=== PATIENT | female | born 1975 | race Caucasian/White ===

== ENCOUNTER 2021-03-08 22:29 | Observation (INO) ==
[2021-03-08] MEDS ORDERED: ONDANSETRON INJ 2 MG/ML 2 ML VIAL IV STA (23:34)
[2021-03-08] MEDS ORDERED: ACETAMINOPHEN 1,000 MG/100 ML VIAL IV STA (23:34)
[2021-03-08] MEDS ORDERED: SODIUM CHLORIDE 0.9% 1000ML 1,000 ML IV SCH (23:45)
--- NOTE | 2021-03-08 23:54 | Emergency Department Note ---
History of Present Illness General Chief complaint: Abdominal Pain Stated complaint: SEVERE PAIN IN RIGHT SIDE& SHOULDER, VOMITING Time Seen by Provider: 03/08/21 23:23 Source: patient Mode of arrival: ambulatory Limitations: no limitations History of Present Illness Provider complaint: Abdominal pain Onset (ago): hour(s) 4 Location: abdomen Radiation: other (Right shoulder) Severity: moderate Pain Consistency: + constant Maximum Pain Intensity: 7 Current Pain Intensity: 7 Quality: + constant Relieved By: + none Exacerbated By: + none Associated symptoms: + nausea/vomiting; no fever/chills and no malaise Treatments prior to arrival: none This is a 45-year-old female presents emergency department complaining of upper abdominal pain. Patient states pain began while eating dinner at around 8 PM. She states pain is been constant and eventually began to radiate up under her right shoulder. States she did become nauseated and vomited 3 times, no blood noted in the emesis. She denies any fevers or chills. Pain does not seem to otherwise radiate into her back or more inferiorly in her abdomen. Denies any bloating or distention. No recent change in bowel movements or urinary habits. Patient states she does have chronic kidney disease. No recent change in medications or diet. No history of PUD. No recent black or bloody stools. Patient has received both of her Covid vaccines. No other known sick contact. Pt seen during a time of high acuity and national emergency pandemic while wearing PPE. Home Medications Medication Instructions Recorded Confirmed Type furosemide 20 mg PO DAILY PRN 03/09/21 03/09/21 History hydroxyzine HCl 25 mg PO Q8H PRN 03/09/21 03/09/21 History sertraline 150 mg PO HS 03/09/21 03/09/21 History trazodone 50 mg PO HS PRN 03/09/21 03/09/21 History Allergies Allergy/AdvReac Type Severity Reaction Status Date / Time No Known Allergies Allergy Unknown Verified 03/08/21 23:59 Past Med/Surg History Medical History (Updated 03/09/21 @ 08:51 by Twyla Weber DO) Anxiety Chronic back pain Chronic kidney disease, stage 3 Depression History of recent fall Obesity Surgical History (Updated 03/09/21 @ 07:21 by Aj Barajas MD) No significant past surgical history Family History Grandmother Coronary heart disease Social History Smoking Status: Never smoker Second Hand Exposure: No; Hx Alcohol Use: Yes Alcohol type: hard liquor Hx Substance Use: No Preferred Language: Indonesian Communication Ability: Effective Core Filer Required: No Beliefs That Will Affect Care: None Current Living Situation: Family Other Information That Helps Us Care for You: No Feels Safe at Home: Yes Safety Concerns: Feels Safe At This Time Assistive Devices: None Review of Systems See HPI for pertinent positives & negatives. and A total of 10 systems reviewed and were otherwise negative Physical Exam Vital Signs Vital Signs - 24 hr 03/08/21 22:34 03/09/21 00:02 03/09/21 00:48 Temperature 36.0 C L Temperature Source Temporal Artery Scan Pulse Rate 77 66 Pulse Rate from SpO2 Sensor 67 Respiratory Rate 18 22 Respiratory Effort / Characteristics Non-Labored Spontaneous Respiratory Depth Normal Respiratory Pattern Regular Blood Pressure 148/98 H 133/66 129/87 Blood Pressure Mean 114 88 101 Blood Pressure Position Lying Pulse Oximetry 97 98 Oxygen Delivery Method Room Air Room Air Sepsis Recent Fever Within 48 Hours No Sepsis New/Unexplained Change in Mental Status No Sepsis Action Taken by Nursing No Action Required 03/09/21 01:00 03/09/21 01:30 03/09/21 02:00 Temperature Temperature Source Pulse Rate 66 72 65 Pulse Rate from SpO2 Sensor 66 72 65 Respiratory Rate 19 16 20 Respiratory Effort / Characteristics Respiratory Depth Respiratory Pattern Blood Pressure 121/71 Blood Pressure Mean 87 Blood Pressure Position Pulse Oximetry 97 98 96 Oxygen Delivery Method Room Air Room Air Room Air Sepsis Recent Fever Within 48 Hours Sepsis New/Unexplained Change in Mental Status Sepsis Action Taken by Nursing GENERAL: alert, uncomfortable appearing, well nourished, mild distress, non- toxic EYE EXAM: normal conjunctiva, PERRL and EOM's grossly intact OROPHARYNX: no exudate, no erythema, lips, buccal mucosa, and tongue normal and mucous membranes are moist NECK: supple, no nuchal rigidity, no adenopathy, non-tender LUNGS: Clear to auscultation. Normal chest wall mechanics, no w/r/r HEART: no murmurs, S1 normal and S2 normal ABDOMEN: abdomen soft, tenderness with palpation in RUQ, normo-active bowel sounds, no masses, no rebound or guarding. BACK: Back is symmetrical on inspection and there is no deformity, no midline tenderness, no CVA tenderness. SKIN: no rashes and no bruising UPPER EXTREMITIES: upper extremities are grossly normal. FROM, nml pulses b/l. LOWER EXTREMITIES: No pitting edema. FROM, nml pulses b/l. NEURO EXAM: Normal sensorium, cranial nerves II-XII grossly intact, normal speech, no gross weakness of arms, no gross weakness of legs. Gross sensation intact. Course Course 0120: Patient updated on results. Patient states pain is improved following administration of morphine. 0128: Discussed with Haim Tong PA-C on-call for general surgery. Administered Medications Cefoxitin Sodium 2,000 mg/ (Dextrose) 60 mls @ 100 mls/hr IV Q6H CONNER Stop: 03/19/21 01:59 Last Infusion: 03/09/21 08:18 Dose: 0 mls/hr Documented by: [id number] Admin: 03/09/21 07:37 Dose: 100 mls/hr Documented by: [id number] Infusion: 03/09/21 03:33 Dose: 0 mls/hr Documented by: [id number] Admin: 03/09/21 02:47 Dose: 100 mls/hr Documented by: [id number] Lactated Ringer's (Lr) 1,000 mls @ 75 mls/hr IV .[id number] CONNER Stop: 04/08/21 02:14 Last Infusion: 03/09/21 08:14 Dose: 75 mls/hr Documented by: [id number] Infusion: 03/09/21 07:37 Dose: 0 mls/hr Documented by: [id number] Admin: 03/09/21 04:26 Dose: 75 mls/hr Documented by: [id number] Infusion: 03/09/21 04:26 Dose: 75 mls/hr Documented by: [id number] Admin: 03/09/21 02:46 Dose: 75 mls/hr Documented by: [id number] Morphine Sulfate (Morphine Sulfate 2 Mg/Ml Carp) 2 mg IV Q3H PRN PRN Reason: Pain Stop: 03/23/21 01:49 Last Admin: 03/09/21 07:44 Dose: 2 mg Documented by: [id number] Ondansetron HCl (Ondansetron Inj 2 Mg/Ml 2 Ml Vial) 4 mg IV Q6H PRN PRN Reason: Nausea And Vomiting Stop: 04/08/21 01:49 Last Admin: 03/09/21 07:44 Dose: 4 mg Documented by: [id number] Discontinued Medications Acetaminophen (Ofirmev) 1,000 mg in 100 mls @ 400 mls/hr IV NOW STA Stop: 03/08/21 23:48 Last Infusion: 03/09/21 00:44 Dose: 0 mls/hr Documented by: [id number] Admin: 03/09/21 00:04 Dose: 400 mls/hr Documented by: [id number] Sodium Chloride (Nss 1000ml) 1,000 mls @ 125 mls/hr IV .Q8H CONNER Stop: 04/07/21 23:44 Last Infusion: 03/09/21 03:40 Dose: 0 mls/hr Documented by: [id number] Infusion: 03/09/21 02:50 Dose: 0 mls/hr Documented by: [id number] Admin: 03/09/21 00:03 Dose: 125 mls/hr Documented by: [id number] Morphine Sulfate (Morphine Sulfate 4 Mg/Ml 1 Ml Carp\Vial) 4 mg IV NOW STA Stop: 03/09/21 00:55 Last Admin: 03/09/21 01:02 Dose: 4 mg Documented by: [id number] Ondansetron HCl (Ondansetron Inj 2 Mg/Ml 2 Ml Vial) 4 mg IV NOW STA Stop: 03/08/21 23:35 Last Admin: 03/09/21 00:03 Dose: 4 mg Documented by: [id number] Medical Decision Making Differential Diagnosis Differential diagnoses includes but is not limited to gastritis, peptic ulcer disease, GERD, gallbladder disease, pancreatitis, small bowel obstruction, acute coronary syndrome, pericarditis, ischemic bowel, irritable bowel disease, irritable bowel syndrome, appendicitis, diverticulitis, malignancy, hernia, urinary tract infection, torsion, [/ectopic (if female)], perforation, trauma, infectious. Medical Records Attestation: I reviewed the patient's medical records. Home Medications Current Medication List: was personally reviewed by me Laboratory Data Attestation: I reviewed the patient's lab results. Result diagrams: 03/09/21 05:48 03/09/21 05:48 Lab Results 0403/08/21 03/08/21 Range/Units 23:50 23:50 23:50 WBC 11.99 H (4.8-10.8) K/uL RBC 4.94 (4.2-5.4) M/uL Hgb 13.5 (12.0-16.0) g/dL Hct 40.4 (37-47) % MCV 81.8 (80-100) fL MCH 27.3 (25-34) pg MCHC 33.4 (32-36) g/dL RDW Std Deviation 42.0 (36.4-46.3) fL RDW Coeff of Marita 14.0 (11.5-14.5) % Plt Count 233 (130-400) K/uL MPV 9.3 (7.4-10.4) fL Immature Gran % (Auto) 0.4 % Neut % (Auto) 74.4 % Lymph % (Auto) 16.6 % Wheeler % (Auto) 7.7 % Eos % (Auto) 0.8 % Baso % (Auto) 0.1 % Neut # (Auto) 8.92 H (1.4-6.5) K/uL Lymph # (Auto) 1.99 (1.2-3.4) K/uL Wheeler # (Auto) 0.92 H (0.11-0.59) K/uL Eos # (Auto) 0.10 (0-0.5) K/uL Baso # (Auto) 0.01 (0-0.2) K/uL Immature Gran # (Auto) 0.05 H (0.00-0.02) K/uL PT 9.9 (9.0-12.0) Seconds INR 1.0 (0.9-1.1) Sodium 141 (136-145) mmol/L Potassium 4.1 (3.5-5.1) mmol/L Chloride 108 H (98-107) mmol/L Carbon Dioxide 28 (21-32) mmol/L Anion Gap 5.0 (3-11) BUN 16 (7-18) mg/dl Creatinine 1.37 H (0.6-1.2) mg/dl Est Cr Clr Drug Dosing 72.2 ml/min Est GFR ( Amer) 53.5 Est GFR (Non-Af Amer) 46.1 BUN/Creatinine Ratio 11.7 (10-20) Glucose 117 H (70-99) mg/dl Calcium 8.6 (8.5-10.1) mg/dl Magnesium 2.3 (1.8-2.4) mg/dl Total Bilirubin 0.5 (0.2-1) mg/dl AST 14 L (15-37) U/L ALT 32 (12-78) U/L Alkaline Phosphatase 100 (45-117) U/L Troponin I < 0.015 (0-0.045) ng/ml Total Protein 7.9 (6.4-8.2) gm/dl Albumin 3.7 (3.4-5.0) gm/dl Globulin 4.2 H (2.5-4.0) gm/dl Albumin/Globulin Ratio 0.9 (0.9-2) Lipase 331 (73-393) U/L HCG, Qual (Negative) Urine Color Urine Appearance (Clear) Urine pH (4.5-7.5) Ur Specific [place] (1.000-1.030) Urine Protein (Negative) Urine Glucose (UA) (Negative) Urine Ketones (Negative) Urine Blood (Negative) Urine Nitrite (Negative) Urine Bilirubin (Negative) Urine Urobilinogen (Negative) Ur Leukocyte Esterase (Negative) 03/08/21 03/09/21 Range/Units 23:50 00:45 WBC (4.8-10.8) K/uL RBC (4.2-5.4) M/uL Hgb (12.0-16.0) g/dL Hct (37-47) % MCV (80-100) fL MCH (25-34) pg MCHC (32-36) g/dL RDW Std Deviation (36.4-46.3) fL RDW Coeff of Marita (11.5-14.5) % Plt Count (130-400) K/uL MPV (7.4-10.4) fL Immature Gran % (Auto) % Neut % (Auto) % Lymph % (Auto) % Wheeler % (Auto) % Eos % (Auto) % Baso % (Auto) % Neut # (Auto) (1.4-6.5) K/uL Lymph # (Auto) (1.2-3.4) K/uL [place] # (Auto) (0.11-0.59) K/uL Eos # (Auto) (0-0.5) K/uL Baso # (Auto) (0-0.2) K/uL Immature Gran # (Auto) (0.00-0.02) K/uL PT (9.0-12.0) Seconds INR (0.9-1.1) Sodium (136-145) mmol/L Potassium (3.5-5.1) mmol/L Chloride (98-107) mmol/L Carbon Dioxide (21-32) mmol/L Anion Gap (3-11) BUN (7-18) mg/dl Creatinine (0.6-1.2) mg/dl Est Cr Clr Drug Dosing ml/min Est GFR ( Amer) Est GFR (Non-Af Amer) BUN/Creatinine Ratio (10-20) Glucose (70-99) mg/dl Calcium (8.5-10.1) mg/dl Magnesium (1.8-2.4) mg/dl Total Bilirubin (0.2-1) mg/dl AST (15-37) U/L ALT (12-78) U/L Alkaline Phosphatase (45-117) U/L Troponin I (0-0.045) ng/ml Total Protein (6.4-8.2) gm/dl Albumin (3.4-5.0) gm/dl Globulin (2.5-4.0) gm/dl Albumin/Globulin Ratio (0.9-2) Lipase (73-393) U/L HCG, Qual Negative (Negative) Urine Color Yellow Urine Appearance Clear (Clear) Urine pH 5.5 (4.5-7.5) Ur Specific [place] 1.028 (1.000-1.030) Urine Protein Negative (Negative) Urine Glucose (UA) Negative (Negative) Urine Ketones Negative (Negative) Urine Blood Negative (Negative) Urine Nitrite Negative (Negative) Urine Bilirubin Negative (Negative) Urine Urobilinogen Negative (Negative) Ur Leukocyte Esterase Negative (Negative) Imaging Data Radiologist's Impression: Chest X-Ray 03/09/21 01:49 XR chest 1V portable CLINICAL HISTORY: pre-op COMPARISON STUDY: Chest radiograph August 31, 2016. FINDINGS: Lung volumes are normal. Lungs are clear. There is no pneumothorax or pleural effusion. Cardiac size is normal. Mediastinal contours are normal. There is no evidence for pulmonary edema. IMPRESSION: No acute cardiopulmonary findings. ACT 112: Negative or not required by law. Electronically signed by: Vu Gonzalez M.D. 03/09/2021 8:28 AM Ultrasound right upper quadrant: Comparison: 08/31/2016. Exam is limited due to gas artifact in the bowel. The head and tail of the pancreas are obscured with visualized portion within normal limits. The liver measures 20 cm suggestive of hepatomegaly. There is diffuse fatty infiltration. Multiple gallstones and sludge within the gallbladder. Wall is mildly distended and measures between 2.5 and 4 mm. No pericholecystic fluid. Batres's sign is unassessable due to prior pain medication. Acute cholecystitis cannot be entirely excluded. If this represents clinical concern, follow-up with HIDA scan recommended. Normal common bile duct measuring 4 mm. Right kidney measures 9.6 cm. No hydro-, no ascites. Radiologist: Angie Webb MD ECG Data Attestation: I personally reviewed and interpreted this ECG as follows: Indication: + abdominal pain Rate (beats per minute): 67 Rhythm: + normal sinus ECG Intervals/blocks: + Normal QRS and + Normal QT ECG [place]: + Normal ECG ST segments: + Normal ST segments MDM Narrative This is a 45-year-old female presents with abrupt onset right upper quadrant pain earlier this evening. Pain does radiate into the right shoulder. No prior similar episodes. Labs sent and reassuring however a leukocytosis of almost 12 was noted. Patient's ultrasound concerning for evolving acute cholecystitis. Patient was afebrile here, no elevated LFTs or lipase. Given patient's evolution of pain with nausea and vomiting, leukocytosis, and ultrasound findings, I feel this most likely represents evolving acute cholecystitis. Case discussed with general surgery PA on-call who came and evaluated the patient at bedside. Patient made aware of all results and was in agreement with plan. At this time I do not suspect acute pancreatitis, ascending cholangitis, choledocholithiasis, PUD, mesenteric ischemia, colitis, SBO, perforation, or GI bleed. An order was placed for continuous cardiac monitoring. The monitor shows a rate of _60_ with _normal sinus rhythm. Impression & Plan Abdominal pain, Biliary colic, Cholelithiasis Discharge Plan Visit Data Chief Complaint: Abdominal Pain Stated Complaint: SEVERE PAIN IN RIGHT SIDE& SHOULDER, VOMITING ED Provider: Twyla Weber Discharge Problem: Abdominal pain, Biliary colic, Cholelithiasis Patient Disposition: Admitted As Inpatient Discharge Instructions Interventions: ED Discharge Assessment Last Done: 03/09/21 03:28 Discharge Problem: Abdominal pain Qualifiers: Abdominal location: right upper quadrant Qualified Code(s): R10.11 - Right upper quadrant pain Cholelithiasis Qualifiers: Cholelithiasis location: gallbladder Cholecystitis presence: with cholecystitis Cholecystitis acuity: acute Biliary obstruction: without biliary obstruction Qualified Code(s): K80.00 - Calculus of gallbladder with acute cholecystitis without obstruction
[2021-03-09 00:06] LABS: Basophils # (auto) 0.01 K/uL (0-0.2); Basophils % (auto) 0.1 %; Eosinophils % (auto) 0.8 %; Hematocrit (blood only) 40.4 % (37-47); Hemoglobin 13.5 g/dL (12.0-16.0); Immature Granulocytes # (auto) 0.05 K/uL (0.00-0.02); Immature Granulocytes % (auto) 0.4 %; Lymphocytes # (auto) 1.99 K/uL (1.2-3.4); Lymphocytes % (auto) 16.6 %; Mean Corpuscular Hemoglobin 27.3 pg (25-34); Mean Corpuscular Hgb Conc 33.4 g/dL (32-36); Mean Corpuscular Volume 81.8 fL (80-100); Mean Platelet Volume 9.3 fL (7.4-10.4); Monocytes # (auto) 0.92 K/uL (0.11-0.59); Monocytes % (auto) 7.7 %; Neutrophils # (auto) 8.92 K/uL (1.4-6.5); Neutrophils % (auto) 74.4 %; Platelet Count 233 K/uL (130-400); Red Blood Count 4.94 M/uL (4.2-5.4); White Blood Count 11.99 K/uL (4.8-10.8)
[2021-03-09 00:18] LABS: Prothrombin Time 9.9 Seconds (9.0-12.0)
[2021-03-09 00:22] LABS: Alanine Aminotransferase 32 U/L (12-78); Albumin Level 3.7 gm/dl (3.4-5.0); Aspartate Aminotransferase 14 U/L (15-37); BUN Creatinine Ratio 11.7 (10-20); Blood Urea Nitrogen 16 mg/dl (7-18); Calcium 8.6 mg/dl (8.5-10.1); Carbon Dioxide 28 mmol/L (21-32); Chloride 108 mmol/L (98-107); Creatinine Clr Calc Pharmacy 72.2 ml/min; Est GFR (African American) 53.5; Est GFR (Non-African American) 46.1; Glucose 117 mg/dl (70-99); Lipase 331 U/L (73-393); Magnesium 2.3 mg/dl (1.8-2.4); Potassium 4.1 mmol/L (3.5-5.1); Sodium 141 mmol/L (136-145)
[2021-03-09 00:27] LABS: Pregnancy Test, Serum Negative (Negative)
[2021-03-09 00:28] LABS: Albumin Globulin Ratio 0.9 (0.9-2); Alkaline Phosphatase 100 U/L (45-117); Bilirubin,Total 0.5 mg/dl (0.2-1); Globulin 4.2 gm/dl (2.5-4.0); Total Protein 7.9 gm/dl (6.4-8.2); Troponin I < 0.015 ng/ml (0-0.045)
[2021-03-09 00:54] LABS: Appearance Urine Clear (Clear); Bilirubin Urine Negative (Negative); Blood Urine Negative (Negative); Color Urine Yellow; Glucose Urine UA Negative (Negative); Ketones Urine Negative (Negative); Leukocyte Esterase Urine Negative (Negative); Nitrite Urine Negative (Negative); Protein Urine Negative (Negative); Specific Gravity Urine 1.028 (1.000-1.030); Urobilinogen Urine Negative (Negative); pH Urine 5.5 (4.5-7.5)
[2021-03-09] MEDS ORDERED: MoRPHine SULFATE 4 MG/ML 1 ML CARP\\VIAL IV STA (00:54)
[2021-03-09] MEDS ORDERED: ACETAMINOPHEN 1,000 MG/100 ML VIAL IV PRN (01:50)
[2021-03-09] MEDS ORDERED: ONDANSETRON INJ 2 MG/ML 2 ML VIAL IV PRN ×2 (01:50→14:28)
--- NOTE | 2021-03-09 02:03 | History & Physical Report ---
Date of Service March 09, 2021 Assessment & Plan (1) Biliary colic: Due to the patient's clinical presentation as well as imaging she may benefit from cholecystectomy. We will therefore admit her to the hospital and proceed as follows: Keep patient n.p.o. Provide IV fluid for hydration Provide analgesics Provide antiemetics Administer antibiotics in the form of cefoxitin We will obtain a chest x-ray for preoperative evaluation Follow-up on results of Covid test has been sent by the emergency room physician I have discussed the situation with the patient and have described the cholecystectomy procedure to her. I informed that we typically perform this procedure laparoscopically however conversion to an open procedure is possible. I have outlined the risks, benefits, and alternatives to her. I described the expected hospital course as well as recovery to her and she wished to proceed. Timing of any procedures is pending Dr. Erickson review of this case. History of Present Illness Chief Complaint: Abdominal pain Primary Care Provider: Max Burrows MD This is a 45-year-old female who presented to the emergency department secondary to abdominal pain. Patient notes that she was in her usual state of health feeling well and she was visiting her son at [facility] in [place], [place]. Patient says that while she was eating dinner which included mashed potatoes she developed sudden onset of right upper quadrant abdominal pain. She notes that the pain radiated to her shoulder and she had associated nausea vomiting. She notes that she has never had this issue before and she denies any other postprandial abdominal pain in the past. She notes the pain was relieved with medicine that was administered in the emergency department but denies any other palliative factors. She feels as though the pain was only provoked by eating. She denies any fevers, shakes, chills. She denies any hematemesis. She denies any melena, bright red blood per rectum, or melanotic stool. She denies any prior abdominal surgeries. In the emergency department the patient had imaging and labs performed which ind ependently reviewed. CBC revealed a white blood cell count of 11.9. Her hemoglobin, hematocrit, platelet count were all within normal range. Coagulation studies were noted to be normal. Chemistry profile revealed her sodium, potassium, and BUN were within normal range. She did have a slight elevation of her creatinine at 1.3. She did not have any elevation of her LFTs. Her lipase was noted to be normal. A test was negative. Urinalysis was not indicative of infection. She did have an EKG that showed sinus rhythm without evidence of any ischemic changes. A Covid test has been ordered and is pending. A chest x-ray is been ordered and is pending. In addition the patient had a gallbladder ultrasound which showed multiple gallstones and sludge within the gallbladder. Slight distention of the gallbladder wall was noted however no pericholecystic fluid was noted. I did question the patient about her activity and lifestyle. She notes when she is feeling well she is active but her activity is somewhat limited due to low back and leg pain. She notes that she can climb 1 flight of steps without shortness of breath or chest pain. She says she can also walk on a flat grade without chest pain or shortness of breath. She does note further activity again is limited by back pain and leg pain. She is a lifetime non-smoker. At the time of my interview she is resting comfortably bed her pain was adequately controlled. She was in no distress. Allergies Allergy/AdvReac Type Severity Reaction Status Date / Time No Known Allergies Allergy Unknown Verified 03/08/21 23:59 Home Medications Medication Instructions Recorded Confirmed Type furosemide 20 mg PO DAILY PRN 03/09/21 03/09/21 History hydroxyzine HCl 25 mg PO Q8H PRN 03/09/21 03/09/21 History sertraline 150 mg PO HS 03/09/21 03/09/21 History trazodone 50 mg PO HS PRN 03/09/21 03/09/21 History Past Med/Surg History Medical History (Updated 03/09/21 @ 08:51 by Twyla Weber DO) Anxiety Chronic back pain Chronic kidney disease, stage 3 Depression History of recent fall Obesity Surgical History (Updated 03/09/21 @ 07:21 by Aj Barajas MD) No significant past surgical history Family History Grandmother Coronary heart disease Social History Smoking Status: Never smoker Second Hand Exposure: No; Hx Alcohol Use: Yes Alcohol type: hard liquor Hx Substance Use: No Preferred Language: Macedonian Communication Ability: Effective Wire Chief Required: No Beliefs That Will Affect Care: None Current Living Situation: Family Other Information That Helps Us Care for You: No Feels Safe at Home: Yes Safety Concerns: Feels Safe At This Time Assistive Devices: None Review of Systems Constitutional: no fever, no chills and no fatigue Eyes: no diplopia Ear, Nose, Mouth, Throat: no ear pain Respiratory: no cough Cardiovascular: no chest pain Gastrointestinal: + abdominal pain, + nausea and + vomiting; no diarrhea/loose stools and no blood in stools Genitourinary: no dysuria Musculoskeletal: + back pain (Chronic) Integumentary: no rash Neurologic: no localized weakness Physical Exam Constitutional: well developed and well nourished; no acute distress Eyes: no conjunctival abnormality ENMT: Ears: no hearing impairment Neck: trachea midline Respiratory: normal respiratory effort, lungs clear to auscultation Cardiovascular: Rate/Rhythm: regular rate and regular rhythm Gastrointestinal (Abdomen): Abdomen is soft and nondistended. Bowel sounds are present. There is no rebound tenderness or guarding. Patient did have pain with deep palpation noted in the right upper quadrant. Batres sign was positive. Musculoskeletal: No calf tenderness. Posterior tibial pulses were palpable bilaterally. Skin: no rashes, warm and dry Neurologic: moves all extremities Psychiatric: A+Ox3, euthymic affect Results & Data Results & Data ([facility]) Vital Signs (Past 12 Hours) Vital Signs Temp Pulse Resp BP Pulse Ox 03/09/21 00:02 133/66 03/08/21 22:34 36.0 C L 77 18 148/98 H 97 Supervising Physician Co-Signing Physician Notes Patient seen and examined, labs and imaging reviewed, agree with above. 45-year-old obese female with cholelithiasis and likely early acute cholecystitis. She ate a potato with ray and cheese last night and shortly afterwards developed significant right upper quadrant pain that came in waves. She is never had pain like this before. No prior abdominal surgeries separate tubal ligation. On exam she is afebrile stable vitals. Her abdomen is soft, tender to palpation in the right upper quadrant, negative Batres sign. WBC 10. LFTs normal. Ultrasound showed cholelithiasis with slightly thickened gallbladder wall but no pericholecystic fluid, normal common bile duct. Cholelithiasis with likely early acute cholecystitis. Plan for laparoscopic cholecystectomy with possible cholangiogram. The risk the procedure were discussed to include but not limited to bleeding, infection, retained stone, bile leak, damage surrounding structures including common bile duct, conversion open, need for future more extensive surgery, and the risk of anesthesia. PG Care Time/CCT Total # of Minutes Spent Total Time Spent with Patient: Total time spent is greater than 50% in coordination of care (as documented) at patient's floor/unit and/or counseling patient: Coding Level of Care Code 13229 OBS Care - Level 3 Diagnoses Biliary colic K80.50
[2021-03-09] MEDS: LACTATED RINGER'S 1,000 ML IV SCH ×3 (02:46→20:30)
[2021-03-09] MEDS: cefOXitin 2,000 MG in DEXTROSE 5% 50 ML IV SCH ×4 (02:47→20:29)
[2021-03-09 03:11] LABS: Influenza A virus by PCR Negative (Neg); Influenza B virus by PCR Negative (Neg); RSV by PCR Negative (Neg); SARS CoV2 RNA(COVID-19) InHosp NEGATIVE (Negative)
[2021-03-09] MEDS ORDERED: hydrOXYzine HCl 25 MG TAB PO PRN (03:38)
[2021-03-09] MEDS ORDERED: traZODone HCL 50 MG TAB PO PRN (03:38)
--- NOTE | 2021-03-09 05:58 | Surgery Progress Note ---
Date of Service March 09, 2021 Assessment & Plan (1) Biliary colic: The patient is tentatively scheduled for cholecystectomy later today. While we are waiting for surgery we will proceed in the following manner: Maintain n.p.o. status Continue hydration measures with IV fluids Continue analgesics Continue antiemetics Continue antibiotics in the form of cefoxitin Preoperative chest x-ray does not show any evidence of pneumonia or CHF Covid test has been resulted and is noted to be negative We will obtain a chest x-ray for preoperative evaluation Repeat LFTs have been ordered for this morning and are pending SCDs were utilized for DVT prevention. We will avoid chemical means in anticipation of upcoming surgery but will transition to either subcu heparin or Lovenox postoperatively This position will depend on operative findings as well as patient's recovery following surgery. Admission and Anticipated Discharge Date Admission Date: March 09, 2021 Supervising Physician Co-Signing Physician Notes Patient seen and examined, labs and imaging reviewed, agree with above. 45-year-old obese female with cholelithiasis and likely early acute cholecystitis. She ate a potato with ray and cheese last night and shortly afterwards developed significant right upper quadrant pain that came in waves. She is never had pain like this before. No prior abdominal surgeries separate tubal ligation. On exam she is afebrile stable vitals. Her abdomen is soft, tender to palpation in the right upper quadrant, negative Batres sign. WBC 10. LFTs normal. Ultrasound showed cholelithiasis with slightly thickened gallbladder wall but no pericholecystic fluid, normal common bile duct. Cholelithiasis with likely early acute cholecystitis. Plan for laparoscopic cholecystectomy with possible cholangiogram. The risk the procedure were discussed to include but not limited to bleeding, infection, retained stone, bile leak, damage surrounding structures including common bile duct, conversion open, need for future more extensive surgery, and the risk of anesthesia. Subjective Patient is resting comfortably in bed. She does note intermittent abdominal pain in the right upper quadrant. She also notes intermittent nausea vomiting. No bowel movement since admission to hospital. She denies any fevers, shakes, chills. Physical Exam Gastrointestinal (Abdomen): Abdomen is soft and nondistended. There is continued pain with palpation in the right upper quadrant. Results & Data ([facility]) Vital Signs (Past 12 Hours) Vital Signs Temp Pulse Pulse Resp BP BP Pulse Ox 03/09/21 03:40 36.5 C 64 18 127/89 98 03/09/21 03:01 63 14 97 03/09/21 03:00 63 17 141/94 H 97 03/09/21 02:31 66 15 96 03/09/21 02:30 68 17 126/71 96 03/09/21 02:18 66 14 118/78 95 03/09/21 02:00 65 20 96 03/09/21 01:30 72 16 98 03/09/21 01:00 66 19 121/71 97 03/09/21 00:48 66 22 129/87 98 03/09/21 00:02 133/66 03/08/21 22:34 36.0 C L 77 18 148/98 H 97 PG Care Time/CCT Total # of Minutes Spent Total Time Spent with Patient: Total time spent is greater than 50% in coordination of care (as documented) at patient's floor/unit and/or counseling patient: Coding Level of Care Code None Diagnoses Biliary colic K80.50
[2021-03-09 06:11] LABS: Basophils # (auto) 0.01 K/uL (0-0.2); Basophils % (auto) 0.1 %; Eosinophils # (auto) 0.11 K/uL (0-0.5); Eosinophils % (auto) 1.1 %; Hematocrit (blood only) 38.3 % (37-47); Immature Granulocytes # (auto) 0.04 K/uL (0.00-0.02); Immature Granulocytes % (auto) 0.4 %; Lymphocytes # (auto) 2.64 K/uL (1.2-3.4); Lymphocytes % (auto) 26.4 %; Mean Corpuscular Hemoglobin 27.4 pg (25-34); Mean Corpuscular Hgb Conc 33.9 g/dL (32-36); Mean Corpuscular Volume 80.6 fL (80-100); Mean Platelet Volume 9.1 fL (7.4-10.4); Monocytes # (auto) 0.92 K/uL (0.11-0.59); Monocytes % (auto) 9.2 %; Neutrophils # (auto) 6.28 K/uL (1.4-6.5); Neutrophils % (auto) 62.8 %; Platelet Count 224 K/uL (130-400); RDW Standard Deviation 41.6 fL (36.4-46.3); Red Blood Count 4.75 M/uL (4.2-5.4)
[2021-03-09 06:25] LABS: Albumin Level 3.1 gm/dl (3.4-5.0); BUN Creatinine Ratio 12.2 (10-20); Calcium 8.1 mg/dl (8.5-10.1); Creatinine Clr Calc Pharmacy 80.3 ml/min; Est GFR (African American) 60.9; Est GFR (Non-African American) 52.6; Potassium 3.9 mmol/L (3.5-5.1)
[2021-03-09 06:28] LABS: Albumin Globulin Ratio 0.8 (0.9-2); Bilirubin,Total 0.5 mg/dl (0.2-1); Globulin 3.7 gm/dl (2.5-4.0); Total Protein 6.8 gm/dl (6.4-8.2)
--- NOTE | 2021-03-09 07:18 | Anesthesiology Consultation ---
Date of Service March 09, 2021 Assessment & Plan (1) Encounter for pre-operative examination: Chart Review Chart Review: Acceptable Risk for Surgery History Surgery Operation Date: 03/09/21 13:00 Proposed Procedures p Laparoscopic Cholecystectomy - Michael Erickson DO, FACS Height/Weight Height: 5 ft 8 in Weight: 126.6 kg Allergies Allergy/AdvReac Type Severity Reaction Status Date / Time No Known Allergies Allergy Unknown Verified 03/08/21 23:59 Medications Home Medications Medication Instructions Recorded Confirmed Last Taken furosemide 20 mg PO DAILY PRN 03/09/21 03/09/21 Unknown hydroxyzine HCl 25 mg PO Q8H PRN 03/09/21 03/09/21 Unknown sertraline 150 mg PO HS 03/09/21 03/09/21 03/07/21 trazodone 50 mg PO HS PRN 03/09/21 03/09/21 Unknown Active Medications Generic Name Dose Route Start Last Admin Trade Name Freq PRN Reason Stop Dose Admin Cefoxitin Sodium 2,000 mg/ 60 mls @ 100 mls/hr 03/09/21 02:00 03/09/21 03:33 Dextrose IV 03/19/21 01:59 Infused Q6H CONNER Infusion Lactated Ringer's 1,000 mls @ 75 mls/hr 03/09/21 02:15 03/09/21 04:26 Lr IV 04/08/21 02:14 75 mls/hr .[id number] CONNER Administration NPO Date Last Intake of Fluids: 03/09/21 Time Last Intake of Fluids: 03:40 Date Last Intake of Solids: 03/09/21 Time Last Intake of Solids: 03:40 Past Medical History Medical History (Updated 03/09/21 @ 07:22 by Aj Barajas MD) Anxiety Chronic back pain Chronic kidney disease, stage 3 Depression History of recent fall Obesity Past Family History Family History Grandmother Coronary heart disease Past Surgical History Surgical History (Updated 03/09/21 @ 07:21 by Aj Barajas MD) No significant past surgical history Social History Smoking Status: Never smoker Hx Alcohol Use: Yes Alcohol type: hard liquor alcohol intake frequency: holidays/special occasions only Hx Substance Use: No Physical Exam Vital Signs Last Vital Signs Temp 36.5 C 03/09/21 03:40 Pulse 64 03/09/21 03:40 Resp 18 03/09/21 03:40 BP 127/89 03/09/21 03:40 Pulse Ox 98 03/09/21 03:40 Testing Laboratory Results 03/09/21 05:48 03/09/21 05:48 PT 9.9 Seconds (9.0-12.0) 03/08/21 23:50 INR 1.0 (0.9-1.1) 03/08/21 23:50 Urine Color Yellow 03/09/21 00:45 Urine Appearance Clear (Clear) 03/09/21 00:45 Urine pH 5.5 (4.5-7.5) 03/09/21 00:45 Ur Specific [place] 1.028 (1.000-1.030) 03/09/21 00:45 Urine Protein Negative (Negative) 03/09/21 00:45 Urine Glucose (UA) Negative (Negative) 03/09/21 00:45 Urine Ketones Negative (Negative) 03/09/21 00:45 Urine Nitrite Negative (Negative) 03/09/21 00:45 Ur Leukocyte Esterase Negative (Negative) 03/09/21 00:45 COVID test negative this admission
[2021-03-09] MEDS: MoRPHine SULFATE 2 MG/ML CARP IV PRN (07:44)
--- NOTE | 2021-03-09 08:29 | XRay Report ---
XR chest 1V portable CLINICAL HISTORY: pre-op COMPARISON STUDY: Chest radiograph August 31, 2016. FINDINGS: Lung volumes are normal. Lungs are clear. There is no pneumothorax or pleural effusion. Car diac size is normal. Mediastinal contours are normal. There is no evidence for pulmonary edema. IMPRESSION: No acute cardiopulmonary findings. ACT 112: Negative or not required by law. Electronically signed by: Vu Gonzalez M.D. 03/09/2021 8:28 AM
--- NOTE | 2021-03-09 09:10 | Ultrasound Report ---
ABDOMINAL ULTRASOUND, RIGHT UPPER QUADRANT HISTORY: Right upper quadrant abdominal pain. COMPARISON: Right upper quadrant ultrasound August 31, 2016. FINDINGS: Exam is compromised by suboptimal penetration. No hepatic lesions are identified. There is no biliary ductal dilatation. The common bile duct measures 4 mm in caliber. Gallbladder is mildly di stended. Wall measures 4 mm in thickness. Sonographic Batres sign could not be assessed for in this p atient. Suspected stones within the gallbladder were noted. There is no pericholecystic fluid. Pancre as is unremarkable by sonography although head and tail are slightly obscured. There is no right hydr onephrosis. IMPRESSION: 1. Exam compromised by suboptimal penetration. Suspected stones and sludge within the gallbladder wit h mild gallbladder wall thickening. Sonographic Batres sign could not be assessed for in this patient . Acute cholecystitis would be difficult to exclude. 2. No biliary ductal dilatation. ACT 112: Negative or not required by law. Electronically signed by: Vu Gonzalez M.D. 03/09/2021 9:09 AM
[2021-03-09] MEDS ORDERED: DEXAMETHASONE SOD INJ 4 MG/ML VIAL ONE (14:26)
[2021-03-09] MEDS ORDERED: ROCURONIUM BROMIDE 10 MG/ML 5 ML VIAL IV ONE (14:26)
[2021-03-09] MEDS ORDERED: LIDOCAINE HCL 2% 2 ML VIAL/AMP(20MG/ML) INFIL ONE (14:26)
[2021-03-09] MEDS ORDERED: PROPOFOL IV EMULSION 10 MG/ML 20 ML VIAL IV ONE (14:26)
[2021-03-09] MEDS ORDERED: MIDAZOLAM HCL 1 MG/ML 2ML VIAL ONE (14:26)
[2021-03-09] MEDS ORDERED: ONDANSETRON INJ 2 MG/ML 2 ML VIAL ONE ×2 (14:26→16:25)
[2021-03-09] MEDS ORDERED: fentaNYL citrate 100 MCG/2 ML VIAL ONE ×5 (14:27→16:13)
[2021-03-09] MEDS ORDERED: PROMETHAZINE HCL 12.5 MG in SODIUM CHLORIDE 0.9% 50 ML IV PRN (14:28)
[2021-03-09] MEDS ORDERED: ATROPINE SULFATE 0.1 MG/ML 10ML SYR IV PRN (14:28)
[2021-03-09] MEDS ORDERED: LABETALOL HCL IV 5 MG/ML 20ML IV PRN (14:28)
[2021-03-09] MEDS ORDERED: BUPIVACAINE 0.5 % 5 MG/1 ML MPF 30ML VIAL ONE (14:42)
[2021-03-09] MEDS ORDERED: GLYCOPYRROLATE 0.2 MG/ML VIAL ONE (15:04)
--- NOTE | 2021-03-09 15:44 | Operative Report ---
PG Post Operative Report Pre & Post Diagnosis Operation Date: 03/09/21 13:00 Pre-Op Diagnosis: Cholelithiasis and biliary colic Post-Op Diagnosis: Cholelithiasis with acute cholecystitis I identified the patient and participated in the time-out.: Yes Procedure Operation Date: 03/09/21 13:00 Actual Procedures p Laparoscopic Cholecystectomy(Not Applicable) - Michael Erickson DO, FACS Surgeon Michael Erickson DO, FACS [place] None Estimated Blood Loss 10 Findings Consistent with Post-Op Diagnosis Moderate to significant inflammation of the gallbladder. Omental adhesions taken down with electrocautery and blunt dissection. Critical view of safety obtained with cystic duct and artery doubly clipped and divided. Gallbladder partially intrahepatic. Good hemostasis. Specimens Gallbladder Anesthesia Type General Complications none Disposition Accompanied Patient To Recovery: No Disposition: Recovery Room Indications 45-year-old female admitted with cholelithiasis and concern for cholecystitis, plan for laparoscopic cholecystectomy with possible cholangiogram. The risks of the procedure were discussed, all questions were answered, and the patient agreed to proceed with surgery as planned. Description of Procedure The patient was properly identified, consented, and taken to the operating room where she was placed in the supine position. General endotracheal anesthesia was induced. SCDs and a safety belt were placed. Preoperative antibiotics were administered. The patient's abdomen was prepped and draped in the standard sterile fashion. A surgical timeout was performed and all parties were in agreement that this was the correct patient and procedure to be performed and we continued as planned. An incision was made superior and to the left of the umbilicus overlying the rectus muscle and the Veress needle was inserted. Saline drop test confirmed entry into the peritoneum. The abdomen was insufflated with carbon dioxide which the patient tolerated without incident. The abdomen was then entered using the Optiview technique and a 5 mm trocar. The laparoscope was inserted and no damage from initial trocar or Veress needle placement was noted, no gross abnormalities were noted within the 4 quadrants of the abdomen. An 11 mm port was placed in the subxiphoid position and two 5 mm ports were then placed in the right subcostal position. The patient was placed in reverse Trendelenburg position and rotated towards the left. The gallbladder was moderately to significantly inflamed. There was omentum adhesed to the liver and gallbladder. This was taken down with blunt dissection and electrocautery. The gallbladder was quite distended. The dome of the gallbladder was retracted towards the left upper quadrant and the infundibulum was retracted toward the right lower quadrant revealing Calot's triangle. Peritoneal attachments were taken down with electrocautery and blunt dissection. The cystic duct and artery were circumferentially dissected. A window of safety was obtained showing the cystic duct entering the gallbladder with no aberrant structures noted. The cystic duct and artery were doubly clipped and divided. The gallbladder was then lifted off the gallbladder fossa with electrocautery. The gallbladder was partially intrahepatic. The gallbladder was placed in an Endo Catch bag and removed through the subxiphoid port site. The right upper quadrant was irrigated and hemostasis was found to be good. 5 mm trochars were removed under direct visualization and the abdomen was allowed to collapse. The subxiphoid port site fascia was closed with 0 Vicryl suture utilizing the Jordan-Jj device prior to the removal of the trochars. The wound was irrigated, and the skin of all ports was closed with 4-0 Monocryl subcuticular sutures. Dermabond was placed over the wounds. The patient was extubated in the operating room and taken to the PACU where she recovered without apparent incident. All sponge, instrument and needle counts were correct at the conclusion of the procedure. The patient tolerated the procedure well. I attest to the content of the Intraoperative Record and any orders documented therein. Any exceptions are noted below.
[2021-03-09] MEDS: fentaNYL citrate 100 MCG/2 ML VIAL IV PRN ×8 (15:58→16:33)
[2021-03-09] MEDS ORDERED: oxyCODONE HCL IR 5 MG TAB (IMMEDIATE RELEASE) PO PRN ×2 (17:01)
[2021-03-09] MEDS ORDERED: SERTRALINE HCL 50 MG TABLET PO SCH (21:00)
[2021-03-10] MEDS: cefOXitin 2,000 MG in DEXTROSE 5% 50 ML IV SCH ×2 (02:12→07:56)
[2021-03-10 05:43] LABS: Basophils # (auto) 0.01 K/uL (0-0.2); Basophils % (auto) 0.1 %; Eosinophils # (auto) 0.01 K/uL (0-0.5); Eosinophils % (auto) 0.1 %; Hematocrit (blood only) 39.1 % (37-47); Hemoglobin 13.4 g/dL (12.0-16.0); Immature Granulocytes # (auto) 0.04 K/uL (0.00-0.02); Immature Granulocytes % (auto) 0.3 %; Lymphocytes # (auto) 1.63 K/uL (1.2-3.4); Mean Corpuscular Hemoglobin 27.7 pg (25-34); Mean Corpuscular Hgb Conc 34.3 g/dL (32-36); Mean Corpuscular Volume 80.8 fL (80-100); Mean Platelet Volume 9.3 fL (7.4-10.4); Monocytes # (auto) 1.26 K/uL (0.11-0.59); Monocytes % (auto) 8.5 %; Neutrophils # (auto) 11.93 K/uL (1.4-6.5); Platelet Count 271 K/uL (130-400); RDW Coefficient of Variation 14.2 % (11.5-14.5); Red Blood Count 4.84 M/uL (4.2-5.4); White Blood Count 14.88 K/uL (4.8-10.8)
[2021-03-10 06:14] LABS: Albumin Level 3.4 gm/dl (3.4-5.0); Calcium 8.9 mg/dl (8.5-10.1); Creatinine Clr Calc Pharmacy 67.6 ml/min; Est GFR (African American) 49.5; Est GFR (Non-African American) 42.7; Potassium 3.8 mmol/L (3.5-5.1)
[2021-03-10 06:19] LABS: Albumin Globulin Ratio 0.9 (0.9-2); Bilirubin,Total 1.1 mg/dl (0.2-1); Globulin 3.7 gm/dl (2.5-4.0); Total Protein 7.1 gm/dl (6.4-8.2)
--- NOTE | 2021-03-10 06:23 | Surgery Progress Note ---
Date of Service March 10, 2021 Assessment & Plan (1) Biliary colic: Postoperative day #1 laparoscopic cholecystectomy To new analgesics Continue antiemetics As patient is tolerating clear liquids and had a bowel movement will consider advancing her diet further Patient tolerates diet advancement will discharge home later today Admission and Anticipated Discharge Date Admission Date: March 09, 2021 Supervising Physician Co-Signing Physician Notes Patient seen and examined, labs reviewed, agree with above. POD #1 laparoscopic cholecystectomy for acute cholecystitis. Overall doing well, tolerated clear liquids. She is little sore at her incision sites after walking a lot. On exam she is afebrile with stable vitals. Incisions with Dermabond in place, no evidence of infection. Abdomen appropriately tender to palpation. Labs with expected postop leukocytosis and mildly elevated total bilirubin, but other LFTs are normal. At this point we will advance her diet and discharged home with follow-up in 2 weeks. Activity restrictions and wound care instructions reviewed. Return precautions given. Subjective Patient denies any nausea vomiting. She has reported abdominal pain secondary to recent surgery. She does report having a bowel movement this morning. She is tolerating clear liquids. Physical Exam Gastrointestinal (Abdomen): Abdomen is soft and nondistended. Bowel sounds are present. There is no rebound tenderness or guarding. She did have pain near her surgical incisions is greatest in the right upper quadrant. Results & Data ([facility]) Vital Signs (Past 12 Hours) Vital Signs Temp Pulse Resp BP Pulse Ox 03/10/21 03:35 37.2 C 74 16 96/62 L 94 03/09/21 22:36 37.3 C 92 H 16 98/62 L 95 03/09/21 20:00 36.6 C 90 16 98/61 L 95 03/09/21 19:00 37.3 C 85 16 119/76 95 PG Care Time/CCT Total # of Minutes Spent Total Time Spent with Patient: Total time spent is greater than 50% in coordination of care (as documented) at patient's floor/unit and/or counseling patient: Coding Level of Care Code None Diagnoses Biliary colic K80.50
--- NOTE | 2021-03-10 07:22 | Electrocardiogram Report ---
Test Reason : Blood Pressure : / mmHG Vent. Rate : 067 BPM Atrial Rate : 067 BPM P-R Int : 180 ms QRS Dur : 090 ms QT Int : 436 ms P-R-T Axes : 062 025 042 degrees QTc Int : 460 ms Normal sinus rhythm Low voltage QRS Borderline ECG When compared with ECG of 31-AUG-2016 20:43, No significant change was found Confirmed by Carlos Orantes ([id number]) on 03/10/2021 7:22:10 AM Referred By: REFERRED SELF Confirmed By:Carlos Orantes
[2021-03-10] MEDS: MoRPHine SULFATE 2 MG/ML CARP IV PRN (07:56)
[2021-03-10] MEDS: LACTATED RINGER'S 1,000 ML IV SCH (09:09)
--- NOTE | 2021-03-11 08:13 | Discharge Summary ---
Date of Service March 11, 2021 Admission HPI Per Admitting Provider This is a 45-year-old female who presented to the emergency department secondary to abdominal pain. Patient notes that she was in her usual state of health feeling well and she was visiting her son at [facility] in [place], [place]. Patient says that while she was eating dinner which included mashed potatoes she developed sudden onset of right upper quadrant abdominal pain. She notes that the pain radiated to her shoulder and she had associated nausea vomiting. She notes that she has never had this issue before and she denies any other postprandial abdominal pain in the past. She notes the pain was relieved with medicine that was administered in the emergency department but denies any other palliative factors. She feels as though the pain was only provoked by eating. She denies any fevers, shakes, chills. She denies any hematemesis. She denies any melena, bright red blood per rectum, or melanotic stool. She denies any prior abdominal surgeries. In the emergency department the patient had imaging and labs performed which independently reviewed. CBC revealed a white blood cell count of 11.9. Her hemoglobin, hematocrit, platelet count were all within normal range. Coagulation studies were noted to be normal. Chemistry profile revealed her sodium, potassium, and BUN were within normal range. She did have a slight elevation of her creatinine at 1.3. She did not have any elevation of her LFTs. Her lipase was noted to be normal. A test was negative. Urinalysis was not indicative of infection. She did have an EKG that showed sinus rhythm without evidence of any ischemic changes. A Covid test has been ordered and is pending. A chest x-ray is been ordered and is pending. In addition the patient had a gallbladder ultrasound which showed multiple gallstones and sludge within the gallbladder. Slight distention of the gallbladder wall was noted however no pericholecystic fluid was noted. I did question the patient about her activity and lifestyle. She notes when she is feeling well she is active but her activity is somewhat limited due to low back and leg pain. She notes that she can climb 1 flight of steps without shortness of breath or chest pain. She says she can also walk on a flat grade without chest pain or shortness of breath. She does note further activity again is limited by back pain and leg pain. She is a lifetime non-smoker. At the time of my interview she is resting comfortably bed her pain was adequately controlled. She was in no distress. Discharge Data Consultations 03/09/21 02:10 ED Decision to Admit Stat Procedures Performed Operation Date: 03/09/21 13:00 Actual Procedures p Laparoscopic Cholecystectomy(Not Applicable) - Michael Erickson DO, FACS Hospital Course (1) Biliary colic: Pt. admitted secondary to biliary colic. Due to clinical presentation and imaging, she underwent a laparoscopic cholecystectomy on 03/09/21. Hr postoperative course was uneventful and she was discharged home on POD#1.
== END 2021-03-10 11:48 | disposition home or self-care (01) ==
LOC: ED 22:29 → 3E 22:29

== ENCOUNTER 2024-05-14 11:36 | Inpatient (IN) ==
--- NOTE | 2024-05-14 12:35 | Emergency Department Note ---
Impression & Plan Depression, Anxiety, Suicidal ideation ED Provider Note ED Provider Note NAME: DAVID WOLFE AGE:48 SEX: Female : 1975 ARRIVES VIA: private vehicle INFORMANT: Patient ED PROVIDER(s): Twyla Weber DO CHIEF COMPLAINT: mental health evaluation HPI: This is a 48-year-old female who presents for mental health evaluation. She states history of anxiety and depression although symptoms worsening since . She states she also began having thoughts of suicide with a plan to drive her car into a tree. No prior SI and no prior attempt. No homicidal ideations. Patient states she also recently began having right-sided abdominal pain that radiates into her back. No change with position, exertion, or eating. No recent change in urine or stools. No change in diet or new medications. She denies fevers or chills. She has had a prior partial hysterectomy. She has had a cholecystectomy additionally. PAST MEDICAL HISTORY:See Below PAST SURGICAL HISTORY:See Below FAMILY HISTORY:See Below SOCIAL HISTORY:See Below HOME MEDICATIONS:See Below ALLERGIES:See Below VITALS:See Below PHYSICAL EXAMINATION: GENERAL: alert, well appearing, well nourished, no distress, non-toxic EYE EXAM: normal conjunctiva, PERRL and EOM's grossly intact OROPHARYNX: no exudate, no erythema, lips, buccal mucosa, and tongue normal and mucous membranes are moist NECK: supple, no nuchal rigidity, no adenopathy, non-tender LUNGS: Clear to auscultation. Normal chest wall mechanics, no w/r/r HEART: no murmurs, S1 normal and S2 normal ABDOMEN: abdomen soft, non-tender, normo-active bowel sounds, no masses, no rebound or guarding. SKIN: no rashes, petechiae, orbruising UPPER EXTREMITIES: upper extremities are grossly normal. FROM, nml pulses b/l. LOWER EXTREMITIES: No pitting edema. FROM, nml pulses b/l. NEURO EXAM: Normal sensorium, cranial nerves II-XII grossly intact, normal speech, no facial droop,nogross weakness of arms, no gross weakness of legs. Gross sensation intact. No ataxia. Vital Signs: reviewed and remarkable Differential Diagnosis: mood disorder, suicidal ideation, anxiety, depression, substance abuse, toxidrome, infection, hypoglycemia, electrolyte abnormalities, ICH as well as others were considered. MEDICAL DECISION MAKING: This is a 48 yo female who presents for mental health evaluation. She also c/o right flank pain. Labs drawn and sent, IV established, urine collected and sent and patient given IVF. She was sent for CT a/p due to the flank pain. Labs, ua, and CT reassuring. Unclear etiology of her lfank pain. Patient evaluated by piano case and bench assembler due to SI and depression. She was referred and accepted to . Consultation(s): 1711: Patient referred to [facility] for additional inpatient mental health treatment. She was accepted. 201 signed by me ER Treatment Provided: See below Diagnostics Interpreted By Me: -Laboratory studies: As stated above and show below. -Imaging studies: CT A/P: No ureterolithiasis Triage Nursing Note Reviewed Prior/Outside Records Reviewed Past Med/Surg History Problem List (Updated 05/14/24 @ 12:35 by Twyla Weber DO) Suicidal ideation (Acute) Pre-diabetes Subclinical hypothyroidism Hal's thyroiditis Fatigue Class 3 obesity Encounter for pre-operative examination Depression Loose stools Intermittent abdominal pain Hx laparoscopic cholecystectomy 2020 Depression (Chronic) Chronic kidney disease, stage 3 (Chronic) Chronic back pain (Chronic) Anxiety (Chronic) Obesity (Chronic) Medical History Anemia In setting of severe menorrhagia Anxiety Chronic back pain Chronic kidney disease, stage 3 Depression History of COVID-19 Dx 04/14/22 (home test)- symptoms at time: headache, congestion, cough, no taste/smell - resolved Obesity Surgical History H/O tubal ligation History of tonsillectomy and adenoidectomy Hx laparoscopic cholecystectomy 2020 Family History Grandmother Coronary heart disease Mother Diabetes Grandmother (Maternal) Diabetes Social History (Updated 02/29/24 @ 09:17 by Kimmy Guillen) Smoking Status: Never smoker Second Hand Exposure: No; Do You Dip or Chew Tobacco: No; Hx Alcohol Use: Yes (rarely) Alcohol type: hard liquor Hx Substance Use: No Preferred Language: Pashto Communication Ability: Effective Electronics Technology Instructor Required: No Beliefs That Will Affect Care: None Current Living Situation: Spouse Feels Safe at Home: Yes Gender Identity: Female Assistive Devices: Glasses Allergies Allergies Allergy/AdvReac Type Severity Reaction Status Date / Time No Known Allergies Allergy Unknown Verified 05/09/24 14:48 Home Meds Home Medications Medication Instructions Recorded Confirmed furosemide 20 mg tablet 20 mg PO DAILY PRN Fluid Retention 03/09/21 05/14/24 trazodone 50 mg tablet 150 mg PO HS 03/09/21 05/14/24 bupropion HCl 150 mg 24 hr tablet, 150 mg PO BID 02/29/24 05/14/24 extended release duloxetine 40 mg capsule,delayed 40 mg PO DAILY 02/29/24 05/14/24 release duloxetine 60 mg capsule,delayed 60 mg PO DAILY 02/29/24 05/14/24 release hydroxyzine HCl 25 mg tablet 12.5 mg PO Q8H PRN Anxiety 02/29/24 05/14/24 naltrexone 50 mg tablet 50 mg PO DAILY 02/29/24 05/14/24 phentermine 15 mg capsule 15 mg PO DAILY 02/29/24 05/14/24 metformin 850 mg tablet 850 mg PO BID 05/14/24 05/14/24 Previous Rx's Medication Instructions Recorded levothyroxine 50 mcg tablet 50 mcg PO DAILY #90 tabs 02/29/24 Results & Data (ED) Vital Signs Vital Signs - 24 hr 05/14/24 11:44 05/14/24 13:36 05/14/24 15:54 Temperature 36.8 C Temperature Source Temporal Artery Scan Pulse Rate 86 Pulse Rate [Right Finger] 73 75 Pulse Rhythm Regular Pulse Strength Normal Respiratory Rate 18 16 18 Respiratory Effort / Characteristics Non-Labored Non-Labored Spontaneous Non-Labored Spontaneous Respiratory Depth Normal Normal Normal Respiratory Pattern Regular Regular Regular Blood Pressure 175/113 H Blood Pressure [Right Arm] 144/91 H 120/80 Blood Pressure Mean 133 Blood Pressure Mean [Right Arm] 108 93 Blood Pressure Position Sitting Pulse Oximetry 96 100 98 Oxygen Delivery Method Room Air Room Air Room Air Sepsis Recent Fever Within 48 Hours No Sepsis New/Unexplained Change in Mental Status N/A Sepsis Action Taken by Nursing No Action Required Laboratory Data 05/14/24 12:09 05/14/24 12:09 Lab Results 05/14/24 05/14/24 05/14/24 Range/Units 12:09 12:20 14:23 WBC 9.73 (4.8-10.8) K/ul RBC 5.55 H (4.20-5.40) M/uL Hgb 15.5 (12.0-16.0) g/dl Hct 46.6 (37.0-47.0) % MCV 84.0 (80.0-100.0) fL MCH 27.9 (25.0-34.0) pg MCHC 33.3 (32.0-36.0) g/dL RDW Std Deviation 40.7 (36.4-46.3) fL RDW Coeff of Marita 13.3 (11.5-14.5) % Plt Count 255 (130-400) K/uL MPV 9.5 (9.4-12.4) fL Immature Gran % (Auto) 0.5 % Neut % (Auto) 65.5 % Lymph % (Auto) 24.0 % [place] % (Auto) 8.7 % Eos % (Auto) 1.0 % Baso % (Auto) 0.3 % Neut # (Auto) 6.36 (1.40-6.50) K/uL Lymph # (Auto) 2.34 (1.20-3.40) K/uL [place] # (Auto) 0.85 H (0.11-0.59) K/uL Eos # (Auto) 0.10 (0.00-0.50) K/uL Baso # (Auto) 0.03 (0.00-0.20) K/uL Immature Gran # (Auto) 0.05 (0.01-0.20) K/uL Sodium 138 (136-145) mmol/L Potassium 4.3 (3.5-5.1) mmol/L Chloride 106 (98-107) mmol/L Carbon Dioxide 26 (21-32) mmol/L Anion Gap 6 (3-11) BUN 17 (6-23) mg/dl Creatinine 1.37 H (0.6-1.2) mg/dl Est Cr Clr Drug Dosing 72.2 ml/min Est GFR ( Amer) 52.4 ml/min Est GFR (Non-Af Amer) 45.2 ml/min BUN/Creatinine Ratio 12.4 (10-20) Glucose 119 H (70-99(Fasting)) mg/dl Calcium 9.6 (8.6-10.3) mg/dl Total Bilirubin 0.6 (0.2-1.0) mg/dl AST 15 (13-39) U/L ALT 18 (7-52) U/L Alkaline Phosphatase 75 (34-104) U/L Total Protein 7.7 (6.0-8.3) gm/dl Albumin 4.4 (3.4-5.0) gm/dl Globulin 3.3 (2.5-4.0) gm/dl Albumin/Globulin Ratio 1.3 (0.9-2) TSH 2.048 (0.300-4.500) uIu/ml Urine Color Yellow Urine Appearance Clear (Clear) Urine pH 6.0 (4.5-7.5) Ur Specific [place] 1.018 (1.000-1.030) Urine Protein Negative (Negative) Urine Glucose (UA) Negative (Negative) Urine Ketones Negative (Negative) Urine Blood Negative (Negative) Urine Nitrite Negative (Negative) Urine Bilirubin Negative (Negative) Urine Urobilinogen Negative (Negative) Ur Leukocyte Esterase Negative (Negative) Salicylates < 3.0 L (3.0-30) mg/dl Urine Opiates Screen Neg (Neg) Ur Methadone, Qual Neg (Neg) Urine Fentanyl Screen Neg (Neg) Acetaminophen < 3 L (10-30) ug/ml Urine Barbiturates Neg (Neg) Ur Phencyclidine (PCP) Neg (Neg) U Amphetamin/Meth Scrn Neg (Neg) MDMA (Ecstasy) Screen Pos H (Neg) U Benzodiazepines Scrn Neg (Neg) Ur Cocaine Metabolite Neg (Neg) U Marijuana (THC) Screen Neg (Neg) Ethyl Alcohol mg/dL < 10.0 (<10.0) mg/dl SARS-CoV-2, RNA, NAAT NEGATIVE (NEGATIVE) Administered Medications Bupropion HCl (Bupropion Xl 150 Mg Tabcr) 150 mg PO BID CONNER Stop: 06/13/24 20:59 Last Admin: 05/14/24 21:18 Dose: 150 mg Documented By: VDS Hydroxyzine HCl (Hydroxyzine Hcl 25 Mg Tab) 50 mg PO HSZ PRN PRN Reason: Insomnia Stop: 06/13/24 17:02 Last Admin: 05/14/24 18:20 Dose: 50 mg Documented By: EVA Naltrexone HCl (Naltrexone Hcl 50 Mg Tab) 25 mg PO BID CONNER Stop: 06/13/24 20:59 Last Admin: 05/14/24 21:18 Dose: 25 mg Documented By: BLANCA Discontinued Medications Acetaminophen (Ofirmev) 1,000 mg in 100 mls @ 400 mls/hr IV NOW STA Stop: 05/14/24 12:42 Last Infusion: 05/14/24 13:10 Dose: Infused Documented By: Admin: 05/14/24 12:38 Dose: 400 mls/hr Documented By: ROSEANNA Sodium Chloride (Nss) 1,000 mls @ 999 mls/hr IV .Q1H1M ONE Stop: 05/14/24 14:16 Last Infusion: 05/14/24 14:53 Dose: Infused Documented By: Admin: 05/14/24 13:40 Dose: 999 mls/hr Documented By: ROSEANNA Ioversol (Optiray 320 100ml) 95 ml IV ONCE ONE Stop: 05/14/24 15:07 Last Admin: 05/14/24 15:06 Dose: 95 ml Documented By: SOLOMON Imaging Data Radiologist's Impression: Abdomen/Pelvis CT 05/14/24 14:49 CT OF THE ABDOMEN AND PELVIS WITH CONTRAST CLINICAL HISTORY: Right flank pain. COMPARISON STUDY: CT of the abdomen and pelvis May 09, 2021. Right upper quadrant ultrasound March 03, 2022. TECHNIQUE: Following IV administration of 95 mL of Optiray, axial images of the abdomen and pelvis were obtained from the lung bases to the proximal femurs. Images were reviewed in the axial, sagittal, and coronal planes. IV contrast was administered without complication. Automated exposure control was utilized for the study. A dose lowering technique was utilized adhering to the principles of ALARA. CT DOSE: 1634.04 mGy.cm FINDINGS: Lung bases are unremarkable. No pneumatosis, free air or portal venous gas is present. There is no biliary ductal dilatation status post cholecystectomy. There are no hepatic lesions. Spleen, adrenal glands, kidneys and pancreas are unremarkable. There is no hydronephrosis. There is no peripancreatic infiltration. No urinary calculi are present. The caliber and wall thickness of small and large bowel are normal. The appendix is normal. There are no fluid collections. No lymphadenopathy. Major vasculature is patent. There are no acute fractures within the lumbar spine, pelvis or hips. IMPRESSION: 1. No acute process within the abdomen or pelvis. 2. Normal appendix. No bowel obstruction. No bowel wall thickening. 3. No urinary calculi or hydronephrosis. ACT 112: Negative or not required by law. Electronically signed by: Vu Gonzalez M.D. 05/14/2024 3:25 PM Discharge Plan Visit Data Chief Complaint: Mental Health Evaluation Stated Complaint: RT SIDE FLANK PAIN ED Provider: Twyla Weber Discharge Problem: Depression, Anxiety, Suicidal ideation Patient Disposition: Admitted As Inpatient Discharge Instructions Interventions: ED Discharge Assessment Last Done: 05/14/24 17:26
[2024-05-14 12:36] LABS: Basophils # (auto) 0.03 K/uL (0.00-0.20); Basophils % (auto) 0.3 %; Hematocrit (blood only) 46.6 % (37.0-47.0); Hemoglobin 15.5 g/dl (12.0-16.0); Immature Granulocytes # (auto) 0.05 K/uL (0.01-0.20); Immature Granulocytes % (auto) 0.5 %; Lymphocytes # (auto) 2.34 K/uL (1.20-3.40); Mean Corpuscular Hemoglobin 27.9 pg (25.0-34.0); Mean Corpuscular Hgb Conc 33.3 g/dL (32.0-36.0); Mean Platelet Volume 9.5 fL (9.4-12.4); Monocytes # (auto) 0.85 K/uL (0.11-0.59); Monocytes % (auto) 8.7 %; Neutrophils # (auto) 6.36 K/uL (1.40-6.50); Neutrophils % (auto) 65.5 %; Platelet Count 255 K/uL (130-400); RDW Coefficient of Variation 13.3 % (11.5-14.5); RDW Standard Deviation 40.7 fL (36.4-46.3); Red Blood Count 5.55 M/uL (4.20-5.40); White Blood Count 9.73 K/ul (4.8-10.8)
[2024-05-14] MEDS: ACETAMINOPHEN 1,000 MG/100 ML VIAL IV STA (12:38)
[2024-05-14 12:52] LABS: Albumin Globulin Ratio 1.3 (0.9-2); Albumin Level 4.4 gm/dl (3.4-5.0); BUN Creatinine Ratio 12.4 (10-20); Bilirubin,Total 0.6 mg/dl (0.2-1.0); Calcium 9.6 mg/dl (8.6-10.3); Creatinine Clr Calc Pharmacy 72.2 ml/min; Est GFR (African American) 52.4 ml/min; Est GFR (Non-African American) 45.2 ml/min; Globulin 3.3 gm/dl (2.5-4.0); Potassium 4.3 mmol/L (3.5-5.1); Total Protein 7.7 gm/dl (6.0-8.3)
[2024-05-14 12:54] LABS: Acetaminophen < 3 ug/ml (10-30); Salicylate < 3.0 mg/dl (3.0-30)
[2024-05-14 13:06] LABS: Thyroid Stimulating Hormone 2.048 uIu/ml (0.300-4.500)
[2024-05-14] MEDS: SODIUM CHLORIDE 0.9% 1,000 ML IV ONE (13:40)
[2024-05-14 14:34] LABS: Appearance Urine Clear (Clear); Bilirubin Urine Negative (Negative); Blood Urine Negative (Negative); Color Urine Yellow; Glucose Urine UA Negative (Negative); Ketones Urine Negative (Negative); Leukocyte Esterase Urine Negative (Negative); Nitrite Urine Negative (Negative); Protein Urine Negative (Negative); Specific Gravity Urine 1.018 (1.000-1.030); Urobilinogen Urine Negative (Negative)
[2024-05-14 15:06] LABS: Amphetamines+Metham, Urine Neg (Neg); Barbiturates, Urine Neg (Neg); Benzodiazepine, Urine Neg (Neg); Cocaine, Urine Neg (Neg); Fentanyl, Urine Neg (Neg); MDMA (Ecstacy), Urine Pos (Neg); Marijuana, Urine Neg (Neg); Methadone, Urine Neg (Neg); Opiate, Urine Neg (Neg); Phencyclidine, Urine Neg (Neg)
[2024-05-14] MEDS: OPTIRAY 320 100ml IV ONE (15:06)
--- NOTE | 2024-05-14 15:27 | CT Scan Report ---
CT OF THE ABDOMEN AND PELVIS WITH CONTRAST CLINICAL HISTORY: Right flank pain. COMPARISON STUDY: CT of the abdomen and pelvis May 09, 2021. Right upper quadrant ultrasound March 03, 2022. TECHNIQUE: Following IV administration of 95 mL of Optiray, axial images of the abdomen and pelvis we re obtained from the lung bases to the proximal femurs. Images were reviewed in the axial, sagittal, and coronal planes. IV contrast was administered without complication. Automated exposure control wa s utilized for the study. A dose lowering technique was utilized adhering to the principles of ALARA . CT DOSE: 1634.04 mGy.cm FINDINGS: Lung bases are unremarkable. No pneumatosis, free air or portal venous gas is present. Ther e is no biliary ductal dilatation status post cholecystectomy. There are no hepatic lesions. Spleen, adrenal glands, kidneys and pancreas are unremarkable. There is no hydronephrosis. There is no peripa ncreatic infiltration. No urinary calculi are present. The caliber and wall thickness of small and la rge bowel are normal. The appendix is normal. There are no fluid collections. No lymphadenopathy. Ricardo or vasculature is patent. There are no acute fractures within the lumbar spine, pelvis or hips. IMPRESSION: 1. No acute process within the abdomen or pelvis. 2. Normal appendix. No bowel obstruction. No bowel wall thickening. 3. No urinary calculi or hydronephrosis. ACT 112: Negative or not required by law. Electronically signed by: Vu Gonzalez M.D. 05/14/2024 3:25 PM
[2024-05-14] MEDS ORDERED: SODIUM CHLORIDE 0.65% NA SOLN 45 ML (OCEAN) PRN (17:03)
[2024-05-14] MEDS ORDERED: hydrOXYzine HCl 25 MG TAB PO PRN (17:03)
[2024-05-14] MEDS ORDERED: BISMUTH SUBSALICYLATE LIQD 236 ML PO PRN (17:03)
[2024-05-14] MEDS ORDERED: MAGNESIUM HYDROXIDE SUSP 30 ML UDC PO PRN (17:03)
[2024-05-14] MEDS ORDERED: ALUMINUM/MAGNESIUM SUSP 30 ML UDC PO PRN (17:03)
[2024-05-14] MEDS: hydrOXYzine HCl 25 MG TAB PO PRN (18:20)
[2024-05-14] MEDS ORDERED: traZODone HCL 50 MG TAB PO PRN (18:34)
[2024-05-14] MEDS: NALTREXONE HCL 50 MG TAB PO SCH (21:18)
[2024-05-14] MEDS: buPROPion XL 150 MG TABCR PO SCH (21:18)
[2024-05-15] MEDS: metFORMIN HCL 850 MG TAB PO SCH (08:28)
[2024-05-15] MEDS: LEVOTHYROXINE SODIUM 50 MCG TABLET PO SCH (08:28)
[2024-05-15] MEDS: DULoxetine HCL 20 MG CAP PO SCH (08:28)
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
[2024-05-15] MEDS: ACETAMINOPHEN 325 MG TAB PO PRN (12:00)
[2024-05-15] MEDS ORDERED: buPROPion SR 150 MG TABCR PO SCH (14:00)
== END 2024-05-15 12:40 | disposition home or self-care (01) | DRG 885 ==
LOC: ED 11:36 → 3S 17:03